=== PATIENT | male | born 1995 | race Caucasian/White ===

== ENCOUNTER 2019-10-12 17:44 | Emergency (ER) | payer MEDICAID, SELFPAY ==
[~2019-10-12] VITALS: Ht 182.9 cm; Wt 88.6 kg
[2019-10-12 18:22] LABS: BASO % 0.5 % (0.0-1.0); EOS # 0.4 10^3/uL (0.0-0.5); EOS % 4.6 % (0.0-3.0); HEMATOCRIT 43.3 % (42.0-52.0); HEMOGLOBIN 14.9 g/dl (13.5-17.5); LYMPH # 2.3 10^3/uL (1.5-5.0); LYMPH % 30.8 % (24.0-44.0); MEAN CORPUSCULAR HEMOGLOBIN 30.4 pg (27.0-33.0); MEAN CORPUSCULAR HGB CONC 34.4 g/dl (32.0-36.5); MEAN CORPUSCULAR VOLUME 88.4 fl (80.0-96.0); MONO # 0.5 10^3/uL (0.0-0.8); MONO % 7.2 % (0.0-5.0); NEUTROPHILS # 4.3 10^3/uL (1.5-8.5); NEUTROPHILS % 56.6 % (36.0-66.0); PLATELET COUNT, AUTOMATED 220 10^3/uL (150-450); WHITE BLOOD COUNT 7.5 10^3/uL (4.0-10.0)
[2019-10-12] MEDS ORDERED: NS 1,000 ML IV ONE (18:30)
[2019-10-12 18:59] LABS: BLOOD UREA NITROGEN 9 MG/DL (7-18); CALCIUM LEVEL 8.9 MG/DL (8.5-10.1); CARBON DIOXIDE LEVEL 27 MEQ/L (21-32); CHLORIDE LEVEL 107 MEQ/L (98-107); CK-MB VALUE MASS < 1.0 NG/ML (<3.6); CPK CREATINE PHOSPHOKINASE 227 U/L (39-308); CREATININE FOR GFR 1.04 MG/DL (0.70-1.30); ETHYL ALCOHOL (ETHANOL) < 0.003 % (0.000-0.010); GLOMERULAR FILTRATION RATE > 60.0 (>60); GLUCOSE, FASTING 98 MG/DL (70-100); MB/CK RELATIVE INDEX 0.44 (< OR =4); POTASSIUM SERUM 3.6 MEQ/L (3.5-5.1); SODIUM LEVEL 139 MEQ/L (136-145); TROPONIN I < 0.02 NG/ML (< 0.10)
--- NOTE | 2019-10-12 19:21 | REP ---
Head CT without contrast: History: Syncope. Repeat dictation. Preliminary report is provided at the time of exam by virtual radiology. Comparison study: No comparison study. CT findings: Bone window settings demonstrate an intact bony calvarium. There is no evidence of skull fracture or incidental bony calvarial lesion. The visualized paranasal sinuses appear clear. No intraorbital abnormality is seen. On soft tissue window setting images; the lateral, third, and fourth ventricles are normal in size and position. Delong-white differentiation pattern is normal above and below the tentorium. There are is no evidence of intracranial hemorrhage. No mass, edema, infarction, or midline shift is seen. No extra-axial fluid collection is appreciated. Impression: Negative noncontrast head CT. Electronically Signed by Brodie Cooney MD 10/12/2019 07:12 P
--- NOTE | 2019-10-12 19:52 | REP ---
Chest x-ray: Two views. History: Syncope . Comparison study: No comparison. . Findings: The lungs are well inflated and free of infiltrate. The pleural angles are sharp. The heart size is normal. Pulmonary vasculature is not increased. No significant bony abnormality is seen. Impression: Negative chest x-ray. Electronically Signed by Brodie Cooney MD 10/12/2019 07:43 P
[2019-10-12 20:52] LABS: AMPHETAMINES LEVEL URINE NEGATIVE (NEGATIVE); BARBITURATES URINE NEGATIVE (NEGATIVE); BENZODIAZEPINES URINE NEGATIVE (NEGATIVE); CANNABINOIDS URINE NEGATIVE (NEGATIVE); COCAINE METABOLITE URINE NEGATIVE (NEGATIVE); METHADONE URINE NEGATIVE (NEGATIVE); OPIATES URINE NEGATIVE (NEGATIVE); PHENCYCLIDINE URINE NEGATIVE (NEGATIVE)
[2019-10-12 21:33] VITALS: BP 106/57
--- NOTE | 2019-10-13 18:40 | ECGEPIP ---
[facility] - ED Test Date: 2019-10-12 Pat Name: AMALIA WADE Department: Room: - Gender: Male [employer]: [place] : 1995 Requested By: Giuliano Claros Order Number: [id number] Reading MD: Aliyah Denton Measurements Intervals [place] Rate: 74 P: 58 [place]: 207 QRS: -5 QRSD: 102 T: 10 QT: 353 QTc: 393 Interpretive Statements SINUS RHYTHM NO PRIOR Electronically Signed on 10-13-2019 18:40:04 EST by Aliyah Denton
== END 2019-10-12 21:36 | disposition home or self-care (01) ==
LOC: M ED 17:44 → EDBD 17:44 → M ED 21:36
DX: R55 Syncope and collapse (principal); G43.909 Migraine, unspecified, not intractable, without status migrainosus; F17.210 Nicotine dependence, cigarettes, uncomplicated
CPT/HCPCS: 70450; 71046; 80048; 80307; 82550; 82553; 84443; 84484; 85025; 93005; 93041; 94760; 96360; 99285; G0480